=== PATIENT | male | born 1990 | race Hispanic/Latino ===

== ENCOUNTER 2018-03-14 18:01 | Emergency (ER) | payer OTHER ==
[2018-03-14 18:36] LABS: BASOPHILS % (AUTO) 0.6 % (0.0-5.0); HEMATOCRIT 40.5 % (42-54); LYMPHOCYTES % (AUTO) 27.7 % (21.0-51.0); MEAN CORPUSCULAR HEMOGLOBIN 28.1 pg (27.0-33.0); MEAN CORPUSCULAR HGB CONC 33.7 g/dL (32.0-36.0); MEAN CORPUSCULAR VOLUME 83.4 fL (79-99); NEUTROPHILS % (AUTO) 64.7 % (40.0-77.0); PLATELET COUNT (AUTO) 334 K/uL (130-400); RED BLOOD CELL COUNT(AUTO) 4.85 MIL/uL (4.50-6.20); RED CELL DISTRIBUTION WIDTH 14.7 % (11.0-15.5); WHITE BLOOD COUNT (AUTO) 11.3 K/uL (4.8-10.8)
[2018-03-14 18:46] LABS: CREATININE 1.2 mg/dL (0.5-1.5); POTASSIUM 3.6 mmol/L (3.5-5.1)
[2018-03-14 18:51] LABS: ALBUMIN 3.6 g/dL (3.5-5.0); BILIRUBIN,TOTAL 0.4 mg/dL (0.2-1.0); TOTAL PROTEIN, SERUM 8.2 g/dL (6.0-8.3)
[2018-03-14] MEDS ORDERED: KETOROLAC TROMETHAMINE 30MG/ML ONE (19:26)
[2018-03-14] MEDS ORDERED: ONDANSETRON HCL 4 MG/2 ML VIAL ONE (20:41)
[2018-03-14] MEDS ORDERED: MORPHINE SULFATE 2 MG/ML 1ML SYG ONE (20:41)
[2018-03-14] MEDS ORDERED: CYCLOBENZAPRINE HCL 10 MG TABLET ONE (22:48)
[2018-03-14] MEDS ORDERED: TRAMADOL HCL 50 MG TABLET ONE (22:48)
== END 2018-03-14 23:11 | disposition home or self-care (01) ==
LOC: EDH 18:01
DX: R07.89 Other chest pain (principal); Z87.442 Personal history of urinary calculi
CPT/HCPCS: 36415; 71046; 80053; 84484; 85025; 93005 ×2; 96374; 96375; 99291; J1885; J2405

== ENCOUNTER 2023-07-10 00:20 | Emergency (ER) | payer OTHER, SELFPAY ==
[~2023-07-10] VITALS: Ht 177.8 cm; Wt 99.8 kg
[2023-07-10 01:00] LABS: BASOPHILS # (AUTO) 0.06 K/uL (0.00-0.20); BASOPHILS % (AUTO) 0.6 % (0.0-5.0); EOSINOPHILS # (AUTO) 0.36 K/uL (0.00-0.70); EOSINOPHILS % (AUTO) 3.5 % (0.0-8.0); HEMATOCRIT 41.2 % (42-54); IMMATURE GRANULOCYTE ABSOLUTE 0.11 K/uL (0-1); LYMPHOCYTES # (AUTO) 3.3 K/uL (1.0-4.8); LYMPHOCYTES % (AUTO) 32.6 % (21.0-51.0); MEAN CORPUSCULAR HEMOGLOBIN 29.4 pg (27.0-33.0); MEAN CORPUSCULAR HGB CONC 35.4 g/dL (32.0-36.0); MEAN CORPUSCULAR VOLUME 82.9 fL (79-99); MONOCYTES # (AUTO) 0.7 K/uL (0.1-1.0); MONOCYTES % (AUTO) 6.8 % (3.0-13.0); NEUTROPHILS # (AUTO) 5.7 K/uL (1.8-7.7); NEUTROPHILS % (AUTO) 55.4 % (40.0-77.0); PLATELET COUNT (AUTO) 164 K/uL (130-400); RED BLOOD CELL COUNT(AUTO) 4.97 MIL/uL (4.50-6.20); RED CELL DISTRIBUTION WIDTH 12.7 % (11.0-15.5); WHITE BLOOD COUNT (AUTO) 10.2 K/uL (4.8-10.8)
[2023-07-10] MEDS ORDERED: FAMOTIDINE 20MG VIAL IV ONE (01:00)
[2023-07-10] MEDS ORDERED: ONDANSETRON 4MG INJ IVP ONE (01:00)
[2023-07-10 01:08] LABS: CREATININE 0.9 mg/dL (0.5-1.5); POTASSIUM 3.6 mmol/L (3.5-5.1)
[2023-07-10 01:13] LABS: ALBUMIN 3.5 g/dL (3.5-5.0); BILIRUBIN,TOTAL 0.6 mg/dL (0.2-1.0); TOTAL PROTEIN, SERUM 7.8 g/dL (6.0-8.3)
[2023-07-10 01:22] LABS: B-TYPE NATRIURETIC PEPTIDE 8 pg/mL (0-100)
[2023-07-10 02:32] LABS: APPEARANCE,URINE CLOUDY (CLEAR); BILIRUBIN,URINE NEGATIVE (NEGATIVE); COLOR,URINE LIGHT-YELLOW (YELLOW); GLUCOSE, URINE (UA) >=1000 mg/dL (NEGATIVE); KETONES,URINE NEGATIVE (NEGATIVE); LEUKOCYTE ESTERASE ,URINE 500 Leu/uL (NEGATIVE); NITRATE,URINE 2+ (NEGATIVE); OCCULT BLOOD,URINE SMALL (NEGATIVE); PROTEIN,URINE 20 mg/dL (NEGATIVE); UROBILINOGEN,URINE 0.2 mg/dL (0.2-1.0)
[2023-07-10 02:33] LABS: ADD UA MICROSCOPIC YES
[2023-07-10 02:34] LABS: WBC,URINE TNTC /HPF (0-1)
[2023-07-10 02:36] LABS: AMPHET/METH SCREEN,URINE NEGATIVE (NEGATIVE); BARBITURATE SCREEN, URINE NEGATIVE (NEGATIVE); BENZODIAZEPINES SCREEN,URINE NEGATIVE (NEGATIVE); CANNABINOID SCREEN,URINE NEGATIVE (NEGATIVE); COCAINE SCREEN,URINE POSITIVE (NEGATIVE); OPIATE SCREEN,URINE NEGATIVE (NEGATIVE); PHENCYCLIDINE SCREEN,URINE NEGATIVE (NEGATIVE)
[2023-07-10 03:10] VITALS: BP 124/54; PULSE 74; RESP 16; O2SAT 97
[2023-07-10] MEDS ORDERED: FAMO-136 PO (03:58)
== END 2023-07-10 04:05 | disposition home or self-care (01) ==
LOC: EDH 00:20
DX: R07.89 Other chest pain (principal); R10.13 Epigastric pain; I10 Essential (primary) hypertension; E11.9 Type 2 diabetes mellitus without complications; E78.00 Pure hypercholesterolemia, unspecified; Z98.890 Other specified postprocedural states; Z79.899 Other long term (current) drug therapy
CPT/HCPCS: 99285; 96374; 71045; 96375; 84484 ×3; 80053; 83880; 80305; 83690; 85025; 87088; 36415; 93005; 81001; J3490; J2405

== ENCOUNTER → 2025-01-15 | Emergency (ER) | payer BC, SELFPAY ==
[~2025-01-15] VITALS: Ht 177.8 cm; Wt 95.3 kg
[~2025-01-15] MED LIST: FAMO-136 PO
[2025-01-15 14:24] VITALS: BP 143/84; PULSE 83; RESP 16; TEMP 98.2; O2SAT 100
[2025-01-15] MEDS: 0.9%NACL 1000ML 1,000 ML IV ONE (14:45)
[2025-01-15] MEDS: PROCHLORPERAZINE 10MG/2ML INJ IV STA (14:46)
[2025-01-15 14:48] LABS: IMMATURE GRANULOCYTE ABSOLUTE 0.10 K/uL (0-1); NUCLEATED RED BLOOD CELLS 0.0 % (0.0-0.19); PLATELET COUNT (AUTO) 339 K/uL (130-400); RED BLOOD CELL COUNT(AUTO) 4.50 MIL/uL (4.50-6.20); RED CELL DISTRIBUTION WIDTH 13.2 % (11.0-15.5); WHITE BLOOD COUNT (AUTO) 11.5 K/uL (4.8-10.8)
--- NOTE | 2025-01-15 14:56 | ERN ---
ED Note History of Present Illness Stated Complaint: MIGRAINE Chief Complaint: Headache Time Seen by MD: 14:19 Time Seen by Midlevel: 14:19 Dictation: 34-year-old male presents to the ED for evaluation right-sided headache. Patient reports he has a history of migraines for the past six months has not seen PCP. Reports he normally takes the medication from [place] that helps day the pain is worse than usual woke up with 10/10. Denies fall, trauma, dizziness, blurry vision, chest pain Allergies: Coded Allergies: No Known Allergies (Unverified Allergy, Unknown, 07/10/23) Home Meds Active Scripts Famotidine (Pepcid) 20 Mg Tablet, 20 MG PO Q12H for 14 Days, #28 TAB Prov:JOEY HUMPHRIES MD 07/10/23 Past Medical History Past Medical History: Diabetes-Type II, High Cholesterol, Hypertension, Migraines Additional Past Medical Hx: NON COMPLIANT WITH MEDICATIONS Surgical History: None RN Note Reviewed/Agreed w/PFSH: Yes Review of System Dictation Constitutional: Negative for fever,chills, and weight loss Eyes: Negative for injury, pain,redness, and discharge ENT: Negative for injury,pain or swelling Cardiovascular: Negative for chest pain, palpitations, and edema Respiratory: Negative for shortness of breath, cough, and wheezing, Abdomen/GI: Negative for abdominal pain, nausea, vomiting, diarrhea, and constipation Back: Negative for injury and pain : Negative for injury, bleeding and discharge MS/Extremity: Negative for injury and deformity Skin: Negative for rash, and discoloration Neuro: Negative for weakness, numbness, tingling, and seizure Psych: Negative for suicide ideation, homicidal ideation, and hallucinations Review of Systems: was completed Initial Vital Sign VS Vital Signs Date Time Temp Pulse Resp B/P (MAP) Pulse Ox O2 Delivery O2 Flow Rate FiO2 01/15/25 14:19 98.2 83 16 143/84 100 Room Air 0 01/15/25 14:24 21 Physical Exam Dictation General: awake, alert, NAD Head/Face: Normocephalic, atraumatic Eyes: PERRL, EOMI, vision at baseline ENT: oral cavity clear, TMs clear, no signs of infection Neck: Trachea midline, supple, no nuchal rigidity Cardiovascular: RRR, normal S1/S2, No MRGs, no JVD Respiratory: CTAB, no respiratory distress, No rales or wheezes Abdomen: Soft, non-tender, non-distended, normal bowel sounds, no guarding or rebound. Skin: Warm, dry, normal turgor, no rash MS/Extremity: Pulses equal, no cyanosis, neurovascular intact, FROM Neuro: COAx4, GCS 15, strength 5/5, CN 2-12 intact, normal cerebellar exam, normal gait, normal [id number]. No visualized nystagmus. Psych: Normal behavior, mood, and affect normal Results (Laboratory/Radiology) Laboratory/Radiology Laboratory Tests Test 01/15/25 14:41 White Blood Count 11.5 K/uL (4.8-10.8) H Red Blood Count 4.50 MIL/uL (4.50-6.20) Hemoglobin 13.4 g/dL (14.0-18.0) L Hematocrit 39.0 % (42-54) L Mean Corpuscular Volume 86.7 fL (79-99) Mean Corpuscular Hemoglobin 29.8 pg (27.0-33.0) Mean Corpuscular Hemoglobin Concent 34.4 g/dL (32.0-36.0) Red Cell Distribution Width 13.2 % (11.0-15.5) Platelet Count 339 K/uL (130-400) Mean Platelet Volume 10.2 fL (7.5-10.5) Immature Granulocyte % (Auto) 0.9 % (0-1) Neutrophils (%) (Auto) 68.3 % (40.0-77.0) Lymphocytes (%) (Auto) 24.3 % (21.0-51.0) Monocytes (%) (Auto) 4.4 % (3.0-13.0) Eosinophils (%) (Auto) 1.7 % (0.0-8.0) Basophils (%) (Auto) 0.4 % (0.0-5.0) Neutrophils # (Auto) 7.9 K/uL (1.8-7.7) H Lymphocytes # (Auto) 2.8 K/uL (1.0-4.8) Monocytes # (Auto) 0.5 K/uL (0.1-1.0) Eosinophils # (Auto) 0.20 K/uL (0.00-0.70) Basophils # (Auto) 0.05 K/uL (0.00-0.20) Absolute Immature Granulocyte (auto 0.10 K/uL (0-1) Nucleated Red Blood Cells 0.0 % (0.0-0.19) Sodium Level 138 mmol/L (136-145) Potassium Level 4.2 mmol/L (3.5-5.1) Chloride Level 102 mmol/L (101-111) Carbon Dioxide Level 28 mmol/L (21-32) Blood Urea Nitrogen 14 mg/dL (7-18) Creatinine 0.9 mg/dL (0.5-1.3) Glomerular Filtration Rate Calc 114 mL/min (>90) Random Glucose 170 mg/dL (70-105) H Total Calcium 8.8 mg/dL (8.5-10.1) Labs Reviewed?: Yes ED Course ED Course Orders Procedure Category Date Status Time Cbc With Differential LAB 01/15/25 Complete 14:33 Basic Metabolic Panel LAB 01/15/25 Complete 14:33 Ketorolac PHA 01/15/25 Complete Tromethamine 15mg/Ml 14:33 Prochlorperazine PHA 01/15/25 Complete 10mg/2ml Inj 14:33 Diphenhydramine Hcl PHA 01/15/25 Complete (Benadryl Inj) 14:33 0.9%Nacl 1000ml (Ns PHA 01/15/25 Complete 1000ml) 15:00 Ct Head/Brain W/O CT 01/15/25 Logged Contrast 14:33 Current Medications Medications (Trade) Dose Ordered Sig/Gurwinder Route PRN Reason Start Time Stop Time Status Last Admin Dose Admin Diphenhydramine HCl (BENAdryl INJ) 25 mg ONCE STAT IV 01/15/25 14:33 01/15/25 14:36 DC 01/15/25 14:46 Ketorolac Tromethamine (toRADol) 15 mg ONCE STAT IV 01/15/25 14:33 01/15/25 14:36 DC 01/15/25 14:46 Prochlorperazine Edisylate (Compazine 10mg/ 2ml Inj) 10 mg ONCE STAT IV 01/15/25 14:33 01/15/25 14:36 DC 01/15/25 14:46 Sodium Chloride 1,000 ml @ 0 mls/hr ONCE ONCE IV 01/15/25 15:00 01/15/25 15:01 DC 01/15/25 14:45 Vital Signs Date Time Temp Pulse Resp B/P (MAP) Pulse Ox O2 Delivery O2 Flow Rate FiO2 01/15/25 14:24 98.2 83 16 143/84 100 Room Air* 0 21 01/15/25 14:19 98.2 83 16 143/84 100 Room Air 0 1514 after headache cocktail was given to patient reports significant improvement in symptoms and decided to elope did not want to wait for a CT scan of the head. Patient walked out of the ER prior to being discharged. Medical Decision Making MDM MDM: Differential diagnosis: Headache, migraine, tension headache, SAH Rationale: Tests considered and ordered secondary to shared decision making include: Previous outside records reviewed: Old ER visits. Medications-Per medication reconciliation Need for hospitalization: Patient does not meet criteria for hospitalization. Need for emergency major/minor surgery: No Patient's prior external medical records from other ER visits were reviewed by me as indicated. Prior testing and results from previous visits were reviewed. Prior tests were taken into account with medical decision making and resource utilization, independent historian/historians were used to obtain complete medical history. I independently interpreted the test that were performed, results were reviewed by me and considered findings on radiology if ordered. Medical management and examination interpretation discussions were had by me with other qualified healthcare professionals as indicated for the patient's care. 34-year-old male presents to the ED for evaluation right-sided headache. Patient reports he has a history of migraines for the past six months has not seen PCP. Reports he normally takes the medication from [place] that helps day the pain is worse than usual woke up with 10/10. Denies fall, trauma, dizziness, blurry vision, chest pain. Neurologically intact. No visualized nystagmus. Normal [id number]. Normalized gait. GCS 15. Due to worsening headache today rather than usual CT scan of the head was ordered and headache cocktail was also ordered. Patient reports significant improvement after migraine cocktail and decided to leave prior to getting CT scan done did not want to wait. Patient will be discharged home. DX & DISP Disposition: Discharge Departure Impression: Primary Impression: Headache Condition: Stable Additional Instructions: DISCHARGE HOME. REST. FOLLOW UP WITH PRIMARY CARE IN 24 HOURS. RETURN TO THE ER FOR ANY ACUTE CHANGE. PATIENT WAS ALSO ADVISED TO FOLLOW-UP WITH PRIMARY CARE PHYSICIAN IN 1 TO 2 DAYS FOR CONTINUED MONITORING. ALL INSTRUCTIONS WERE GIVEN TO [place]MANS TERM AND PATIENT AGREEABLE TO DISCHARGE AND PROPER FOLLOW-UP. Referrals: BIJAL MINER MD (PCP) I have reviewed the case, and I agree with, Diagnosis and Plan CODY FARIAS Jan 15, 2025 14:56
[2025-01-15 15:07] LABS: CREATININE 0.9 mg/dL (0.5-1.3); GLOMERULAR FILTR. RATE CALC 114.0 mL/min (>90); GLUCOSE,RANDOM 170.0 mg/dL (70-105); SODIUM SERUM 138.0 mmol/L (136-145); UREA NITROGEN, BLOOD 14.0 mg/dL (7-18)
--- NOTE | 2025-01-15 15:17 | NUR ---
PT STATED HE FELT BETTER AND DID NOT WANT TO WAIT FOR CT SCAN, WOULD F/U W/ PRIMARY MD
== END ==
LOC: EDH 14:18
DX: G43.909 Migraine, unspecified, not intractable, without status migrainosus (principal); E11.9 Type 2 diabetes mellitus without complications; E78.00 Pure hypercholesterolemia, unspecified; I10 Essential (primary) hypertension; Z79.899 Other long term (current) drug therapy
CPT/HCPCS: 99284; 96374; 96375; 80048; 85025; 36415; J1885; J1200; J7030; J0780